=== PATIENT | female | born 1975 | race Caucasian/White ===

== ENCOUNTER 2023-07-27 06:36 | Day surgery (SDC) | payer OTHER, SELFPAY ==
[2023-07-17 10:15] VITALS: BMI 38.6
[2023-07-17 10:45] LABS: % Basophils 0.3 % (0-2); % Immature Granulocytes 0.2 % (0-0.5); % Lymphocytes 35.5 % (20.5-51.1); Absolute Eosinophils 0.3 10^3/uL (0-0.7); Absolute Lymphocytes 3.8 10^3/uL (1.2-3.4); Absolute Monocytes 0.6 10^3/uL (0.1-0.6); Absolute Neutrophils 5.9 10^3/uL (1.4-6.5); Hematocrit 38.7 % (37.0-47.0); Hemoglobin 12.6 g/dL (12.0-16.0); Mean Corp Hgb Conc. 32.6 g/dL (33.0-37.0); Mean Corpuscular Hgb 28.8 pg (27.0-31.0); Mean Corpuscular Volume 88.4 fL (81.0-99.0); Mean Platelet Volume 10.3 fL (7.4-10.4); Nucleated Red Blood Cells % 0 %; Platelet Count 244 10^3/uL (130-400); Red Blood Cell Count 4.38 10^6/uL (4.20-5.40); White Blood Cell Count 10.7 10^3/uL (4.8-10.8)
[2023-07-17 10:51] LABS: APTT 30.2 Sec (23.4-35.0); INR 0.99; PT 12.9 Sec (11.4-14.6)
[2023-07-17 10:53] LABS: Urine Albumin Negative (Neg - Trace); Urine Bilirubin Negative (Negative); Urine Character Clear (Clear); Urine Color Yellow; Urine Glucose Negative (Negative); Urine Ketone Trace (Negative); Urine Leukocyte Trace (Negative); Urine Nitrite Negative (Negative); Urine Occult Blood Negative (Negative); Urine Specific Gravity 1.025 (<1.030); Urine Urobilinogen Negative (Neg - 1+)
[2023-07-17 11:24] LABS: Urine Squamous Cell >30 /LPF (Few)
[2023-07-17 11:25] LABS: Urine Red Blood Cell 0-2 /HPF (0-2)
[2023-07-17 12:26] LABS: Blood Urea Nitrogen 16 mg/dl (7-17); Calcium 9.7 mg/dl (8.4-10.2); Carbon Dioxide 25 mmol/L (22-30); Chloride 104 mmol/L (98-107); Estimated Creatinine Clearance > 125 ml/min; Glucose 114 mg/dl (70-99); Potassium 4.3 mmol/L (3.5-5.1); Sodium 138 mmol/L (135-145); eGFR > 60.00
[2023-07-27] VITALS (11 sets, daily range): BP systolic 2–122; BP diastolic 40–69; BMI 37.8
[2023-07-27 08:54] LABS: Glucose - Point of Care 111 mg/dl (70-99)
[2023-07-27] MEDS: NORMOSOL-R 1000 IV (08:58)
[2023-07-27] MEDS: Pyridium 200 MG PO (10:21)
== END 2023-07-27 11:35 | disposition home or self-care (01) ==
LOC: SDS 06:36
PROVIDERS: ATTENDING PHYSICIAN Urology; FAMILY PHYSICIAN Student in an Organized Health Care Education/Training Program
DX: N30.10 Interstitial cystitis (chronic) without hematuria (principal); M62.89 Other specified disorders of muscle
CPT/HCPCS: 52260; 36415; 80048; 81003; 81015; 82962; 85025; 85610; 85730; 93005

== ENCOUNTER 2024-01-25 06:26 | Day surgery (SDC) | payer OTHER, SELFPAY ==
[2024-01-18 12:02] LABS: Blood Urea Nitrogen 20 mg/dl (7-17); Calcium 9.7 mg/dl (8.4-10.2); Carbon Dioxide 34 mmol/L (22-30); Chloride 100 mmol/L (98-107); Glucose 96 mg/dl (70-99); Potassium 4.6 mmol/L (3.5-5.1); Sodium 140 mmol/L (135-145); eGFR > 60.00
[2024-01-18 12:15] LABS: Urine Albumin Trace (Neg - Trace); Urine Bilirubin 1+ (Negative); Urine Character Clear (Clear); Urine Color Yellow; Urine Glucose Negative (Negative); Urine Ketone Negative (Negative); Urine Leukocyte 2+ (Negative); Urine Nitrite Negative (Negative); Urine Occult Blood Negative (Negative); Urine Specific Gravity 1.015 (<1.030); Urine Urobilinogen Negative (Neg - 1+); Urine pH 6.5 (5.0-9.0)
[2024-01-18 13:00] LABS: Urine Bacteria Moderate (Negative); Urine Squamous Cell >30 /LPF (Few)
[2024-01-18 13:01] LABS: Urine Red Blood Cell None Seen /HPF (0-2)
[2024-01-18 13:43] VITALS: BMI 38.1
[2024-01-20 14:53] LABS: % Basophils 0.4 % (0-2); % Eosinophils 2.7 % (0-6); % Immature Granulocytes 0.9 % (0-0.5); % Lymphocytes 45.2 % (20.5-51.1); % Monocytes 4.4 % (1.7-9.3); % Neutrophils 46.4 % (42.2-75.2); Absolute Basophils 0.1 10^3/uL (0-0.2); Absolute Eosinophils 0.3 10^3/uL (0-0.7); Absolute Immature Granulocytes 0.1 10^3/uL (0-0.05); Absolute Lymphocytes 5.7 10^3/uL (1.2-3.4); Absolute Monocytes 0.6 10^3/uL (0.1-0.6); Absolute Neutrophils 5.9 10^3/uL (1.4-6.5); Hemoglobin 12.3 g/dL (12.0-16.0); Mean Corp Hgb Conc. 32.4 g/dL (33.0-37.0); Mean Corpuscular Hgb 28.5 pg (27.0-31.0); Mean Corpuscular Volume 88.2 fL (81.0-99.0); Mean Platelet Volume 9.6 fL (7.4-10.4); Nucleated Red Blood Cells % 0 %; Platelet Count 366 10^3/uL (130-400); Red Blood Cell Count 4.31 10^6/uL (4.20-5.40); Red Cell Dist. Width 14.7 % (11.5-14.5); White Blood Cell Count 12.7 10^3/uL (4.8-10.8)
--- NOTE | 2024-01-20 15:29 | PTCARENOTE ---
Patients 01/17 abn TOÑA Baez @ Dr. Tan office notified
[2024-01-25] VITALS (15 sets, daily range): BP systolic 90–124; BP diastolic 41–89; BMI 38.1
[2024-01-25 07:48] LABS: Glucose - Point of Care 133 mg/dl (70-99)
[2024-01-25 09:01] LABS: Glucose - Point of Care 135 mg/dl (70-99)
[2024-01-25 10:53] LABS: Glucose - Point of Care 147 mg/dl (70-99)
== END 2024-01-25 12:12 | disposition home or self-care (01) ==
LOC: SDS 06:26
PROVIDERS: ATTENDING PHYSICIAN Urology; FAMILY PHYSICIAN Family Medicine
DX: N30.10 Interstitial cystitis (chronic) without hematuria (principal); N32.89 Other specified disorders of bladder
CPT/HCPCS: 52260; 36415; 80048; 81003; 81015; 82962; 85025; 87077; 87086; 87147; 87186; 93005

== ENCOUNTER 2024-11-07 06:25 | Day surgery (SDC) | payer OTHER, SELFPAY ==
[2024-10-31 11:16] LABS: Urine Character Cloudy (Clear)
[2024-10-31 11:24] LABS: Hematocrit 39.5 % (37.0-47.0); Hemoglobin 12.5 g/dL (12.0-16.0); Mean Corp Hgb Conc. 31.6 g/dL (33.0-37.0); Mean Corpuscular Volume 87.8 fL (81.0-99.0); Nucleated Red Blood Cells % 0 %; Platelet Count 337 10^3/uL (130-400); Red Cell Dist. Width 15.4 % (11.5-14.5)
[2024-10-31 11:28] LABS: Urine Squamous Cell >30 /LPF (Few); Urine White Cell >100 /HPF (0-5)
[2024-10-31 11:29] LABS: Urine Red Blood Cell None Seen /HPF (0-2)
[2024-10-31 12:04] LABS: Blood Urea Nitrogen 10 mg/dl (7-17); Calcium 9.9 mg/dl (8.4-10.2); Carbon Dioxide 30 mmol/L (22-30); Chloride 103 mmol/L (98-107); Glucose 82 mg/dl (70-99); Potassium 4.5 mmol/L (3.5-5.1); Sodium 139 mmol/L (135-145); eGFR > 60.00
[2024-10-31 14:24] VITALS: BMI 34.6
--- NOTE | 2024-11-01 11:45 | PTCARENOTE ---
Sasha España in Dr. Barahona office made aware.
[2024-11-07] VITALS (12 sets, daily range): BP systolic 89–115; BP diastolic 43–70; BMI 34.6
[2024-11-07] MEDS: NORMOSOL-R/PLASMALYTE-A 1000 IV (10:41)
== END 2024-11-07 13:52 | disposition home or self-care (01) ==
LOC: SDS 06:25
PROVIDERS: ATTENDING PHYSICIAN Urology; PRIMARYCARE PHYSICIAN Internal Medicine
DX: N30.10 Interstitial cystitis (chronic) without hematuria (principal)
CPT/HCPCS: 52260; 36415; 80048; 81003; 81015; 85025; 87086; 87147; 87186; 93005